=== PATIENT | female | born 1990 | race Hispanic/Latino ===

== ENCOUNTER 2018-06-10 09:30 | Emergency (ER) | payer SELFPAY ==
[~2018-06-10] VITALS: Ht 162.6 cm; Wt 101.6 kg
[2018-06-10 10:44] VITALS: BP 139/92
== END 2018-06-10 10:45 | disposition home or self-care (01) ==
LOC: ER 09:30
DX: L03.311 Cellulitis of abdominal wall (principal); Z98.84 Bariatric surgery status
CPT/HCPCS: 99283